=== PATIENT | male | born 1940 | race Caucasian/White ===

== ENCOUNTER 2020-09-28 09:03 | Outpatient (REF) | payer MEDICARE, SELFPAY ==
--- NOTE | 2020-10-03 08:42 | MHC.AU.P13 ---
Adult Audiological Evaluation Date of Visit: 09/28/20 Reason for Appointment: Long-standing history of hearing loss. Patient arrives to determine if there has been a change in hearing. He thinks that clarity of speech has decreased further. Previous Hearing Test Results: At this clinic on 05/25/2019- Moderate to profound sensorineural hearing loss bilaterally, slightly worse in the left ear. Word discrimination was 44% in the right ear and 24% in the left ear. Medical History: Medical History: Heart Problems, High Blood Pressure, Thyroid Disease Hearing Instrument History- Right Ear: Rod Filler: Phonak Model: Audeo V90-13 Serial Number: [id number] Battery Size: 13 Repair Warranty: 02/15/2019 Loss and Damage Warranty: 02/15/2019 Dispensed By: [facility] Date of Fittin11/26/2015 Hearing Instrument History- Left Ear: Rod Filler: BallLogicak Model: Audeo V90-13 Serial Number: [id number] Battery Size: 13 Warranty: 02/15/2019 Loss and Damage Warranty: 02/15/2019 Dispensed By: [facility] Date of Fittin11/26/2015 Otoscopy: Right Ear: Unremarkable Left Ear: Unremarkable Tympanometry: Tympanometry performed due to: Patient report of problem with sound quality/clarity Right Ear: Normal Middle Ear System (Type A) Left Ear: Normal Middle Ear System (Type A) Hearing Evaluation: Transducer(s) Used: Insert Earphones Method: Conventional Audiometry Stimuli Used: Pure Tones Right Ear: Description of Hearing: Moderate to profound sensorineural hearing loss Left Ear: Description of Hearing: Moderate to profound sensorineural hearing loss Speech Recognition Threshold (SRT): Method Used: Recorded Lists Stimuli Used: Spondee Words Right Ear: 80 dBHL Left Ear: 80 dBHL Word Discrimination: Method: Recorded Lists Word Lists Used: NU-6 Right Ear: 28% at 85 dBHL (Tested at MCL due to patient discomfort at higher levels) Left Ear: 32% at 90 dBHL (Tested at MCL due to patient discomfort at higher levels) Most Comfortable Level (MCL): Right Ear: 85 dBHL Left Ear: 90 dBHL Comparison: Compared to most recent evaluation: Slight decrease in tonal thresholds, mostly in low frequencies. Recommendations: Audiological re-evaluation in one year. Hearing aid maintenance performed today. Hearing aid(s) reprogrammed with updated test results. Patient has been experiencing frustration with his decrease in clarity/word discrimination. Discussed that due to his poor word discrimination and extent of hearing loss, he could potentially be a candidate for a cochlear implant. If he was interested, it is recommended that he consult Dr. Nicholson at [facility]. Diagnosis: Primary Diagnosis: H90.3 Bilateral Sensorineural Hearing Loss Services Performed: Comprehensive Audiological Evaluation (CPT 40850), Tympanometry (CPT 69253) Signature: Provider: Tracy Faustin, CCC-A
--- NOTE | 2020-10-03 08:47 | MHC.AU.P13 ---
Adult Audiological Evaluation Date of Visit: 09/28/20 Reason for Appointment: Long-standing history of hearing loss. Patient arrives to determine if there has been a change in hearing. He thinks that clarity of speech has decreased further. Previous Hearing Test Results: At this clinic on 05/25/2019- Moderate to profound sensorineural hearing loss bilaterally, slightly worse in the left ear. Word discrimination was 44% in the right ear and 24% in the left ear. Medical History: Medical History: Heart Problems, High Blood Pressure, Thyroid Disease Hearing Instrument History- Right Ear: Rail Layer: Phonak Model: Audeo V90-13 Serial Number: [id number] Battery Size: 13 Repair Warranty: 02/15/2019 Loss and Damage Warranty: 02/15/2019 Dispensed By: [facility] Date of Fittin11/26/2015 Hearing Instrument History- Left Ear: Rail Layer: TouristRak Model: Audeo V90-13 Serial Number: [id number] Battery Size: 13 Warranty: 02/15/2019 Loss and Damage Warranty: 02/15/2019 Dispensed By: [facility] Date of Fittin11/26/2015 Otoscopy: Right Ear: Unremarkable Left Ear: Unremarkable Tympanometry: Tympanometry performed due to: Patient report of problem with sound quality/clarity Right Ear: Normal Middle Ear System (Type A) Left Ear: Normal Middle Ear System (Type A) Hearing Evaluation: Transducer(s) Used: Insert Earphones Method: Conventional Audiometry Stimuli Used: Pure Tones Right Ear: Description of Hearing: Moderate to profound sensorineural hearing loss Left Ear: Description of Hearing: Moderate to profound sensorineural hearing loss Speech Recognition Threshold (SRT): Method Used: Recorded Lists Stimuli Used: Spondee Words Right Ear: 80 dBHL Left Ear: 80 dBHL Word Discrimination: Method: Recorded Lists Word Lists Used: NU-6 Right Ear: 28% at 85 dBHL (Tested at MCL due to patient discomfort at higher levels) Left Ear: 32% at 90 dBHL (Tested at MCL due to patient discomfort at higher levels) Most Comfortable Level (MCL): Right Ear: 85 dBHL Left Ear: 90 dBHL Comparison: Compared to most recent evaluation: Slight decrease in tonal thresholds, mostly in low frequencies. Recommendations: Audiological re-evaluation in one year. Hearing aid maintenance performed today. Hearing aid(s) reprogrammed with updated test results. Patient has been experiencing frustration with his decrease in clarity/word discrimination. Discussed that due to his poor word discrimination and extent of hearing loss, he could potentially be a candidate for a cochlear implant. If he was interested, it is recommended that he consult an Ear, Nose, and Throat physician experienced with cochlear implants. Some nearby practices include Dr. Nicholson at [facility] in [place], [place] or the Ear, N[facility], and Th[facility] practice at [facility] in [place], [place]. Diagnosis: Primary Diagnosis: H90.3 Bilateral Sensorineural Hearing Loss Services Performed: Comprehensive Audiological Evaluation (CPT 40801), Tympanometry (CPT 27519) Signature: Provider: Tracy Faustin, CCC-A
== END 2020-09-28 09:04 | disposition home or self-care (01) ==
LOC: HO.SH 09:03
PROVIDERS: Visit Provider Family Medicine
DX: H90.3 Sensorineural hearing loss, bilateral (principal)
CPT/HCPCS: 92557; 92567

== ENCOUNTER 2020-09-28 09:54 | Outpatient (REF) | payer SELFPAY | END 2020-09-28 09:55 | disposition home or self-care (01) | LOC: HO.HAP 09:54 | PROVIDERS: Visit Provider Family Medicine | DX: Z46.1 Encounter for fitting and adjustment of hearing aid (principal) | CPT/HCPCS: V5267 ==

== ENCOUNTER 2021-04-11 14:12 | Outpatient (REF) | payer SELFPAY | END 2021-04-11 14:13 | disposition home or self-care (01) | LOC: HO.HAP 14:12 | PROVIDERS: Visit Provider Family Medicine | DX: Z46.1 Encounter for fitting and adjustment of hearing aid (principal); H90.3 Sensorineural hearing loss, bilateral | CPT/HCPCS: V5267 ==

== ENCOUNTER 2021-10-28 09:32 | Outpatient (REF) | payer MEDICARE, SELFPAY ==
--- NOTE | 2021-10-28 14:31 | MHC.AU.AEV ---
Adult Audiological Evaluation Date of Visit: 10/28/21 Reason for Appointment: Long-standing history of hearing loss. Patient had chronic ear infections as a child, which were treated with radium. He believes that may have been a major contributing factor to his hearing loss. Has hearing been tested previously?: Yes Previous Hearing Test Results: At this clinic on 09/28/2020- Moderately-severe to profound sensorineural hearing loss bilaterally Ear History: Recent Ear Drainage: None Reported Recent Ear Pain: None Reported Recent Ear Infections: None Reported Ear Infections in Childhood: Both Ears Medical History: Medical History: Heart Problems, High Blood Pressure, Thyroid Disease Hearing Instrument History- Right Ear: Hand Router Operator: [employer] Model: ViXS SystemseAscendant Dx V90-13 Serial Number: [id number] Battery Size: 13 Repair Warranty: 02/15/2019 Loss and Damage Warranty: 02/15/2019 Dispensed By: [facility] Date of Fittin11/26/2015 Hearing Instrument History- Left Ear: Hand Router Operator: [employer].orgak Model: Audeo V90-13 Serial Number: [id number] Battery Size: 13 Warranty: 02/15/2019 Loss and Damage Warranty: 02/15/2019 Dispensed By: [facility] Date of Fittin11/26/2015 Otoscopy: Right Ear: Unremarkable Left Ear: Unremarkable Hearing Evaluation: Transducer(s) Used: Insert Earphones Method: Conventional Audiometry Stimuli Used: Pure Tones Right Ear: Description of Hearing: Moderately-severe to profound sensorineural hearing loss Left Ear: Description of Hearing: Moderately-severe to profound sensorineural hearing loss Speech Recognition Threshold (SRT): Method Used: Recorded Lists Stimuli Used: Spondee Words Right Ear: 65 dBHL Left Ear: 65 dBHL Word Discrimination: Method: Recorded Lists Word Lists Used:: W-22 Right Ear: 25% at 85 dBHL (could not test higher due to patient discomfort) Left Ear: 30% at 85 dBHL (could not test higher due to patient discomfort) Most Comfortable Level (MCL): Right Ear: 90 dBHL Left Ear: 90 dBHL Comparison: Compared to most recent evaluation: Slight decrease in right ear around 5935-2339 Hz Recommendations: Audiological re-evaluation in one year. See Hearing Aid Follow-Up note for more information. Diagnosis: Primary Diagnosis: H90.3 Bilateral Sensorineural Hearing Loss Signature: Provider: Tracy Faustin, CCC-A
--- NOTE | 2021-10-28 14:33 | MHC.AU.HFU ---
Hearing Instrument Follow-Up- Binaural Date of Visit: 10/28/21 Right Ear: Wing Commander: Phonak Model: Tracyeo V90-13 Serial Number: [id number] Repair Warranty: 02/15/2019 Loss and Damage Warranty: 02/15/2019 Battery Size: 13 Dispensed By: [facility] Date of Fittin11/26/2015 Left Ear: Wing Commander: Phonak Model: Tracyeo V90-13 Serial Number: [id number] Repair Warranty: 02/15/2019 Loss and Damage Warranty: 02/15/2019 Battery Size: 13 Type of Wax Guard: Dispensed By: [facility] Date of Fittin11/26/2015 Follow-Up Summary: Patient was seen for audiological re-evaluation (see separate report for details). He reports that on both cShells, the skeleton lock portion has broken and is starting to separate from the body of the cShell. They still fit and are not causing pain; however, the cracks could allow moisture to get into the electronics and cause damage. Patient also notes that the right hearing aid sounds very weak. Hearing aid maintenance performed. Exteriors were cleaned. Microphones vacuumed. Battery compartments cleaned. The left hearing aid is amplifying as expected. The right hearing aid is still very weak after cleaning. Options were discussed, which included repairing the right hearing aid and obtaining new cShells, pursuing a new pair of hearing aids, or determining candidacy for cochlear implantation, as was briefly discussed at his last audio. Patient would like to hold off on cochlear implants, as he has several other surgeries he will need within the next year or so. He would like to try any non-surgical approach to improving his hearing first. Discussed that, given his degree of hearing loss, his current hearing aids have approached the limit of their fitting range. He ideally should have ultra-powered instruments that are meant for profound hearing loss. It would preferable to pursue new, more powerful, hearing aids over the cost of repairing 6 year old hearing aids that are not meeting his amplification needs. Patient is still in the workforce. He obtained his previous hearing aids through [facility]. He asked me to reach out to his previous counselor, Marcia Mcgrath, and let her know that he is interested in new hearing aids. She will contact the patient to discuss the process going forward. In the meantime, impressions for new molds were taken bilaterally and will be held in our office until we hear from [facility]. If able to proceed, a pair of Phonak Anabel P70-UP in color P1 will be ordered, along with Microsonic Jocle-q-ravg Clear Skeleton molds. Patient will be contacted with updates as we proceed. Diagnosis Code(s): Primary Diagnosis: H90.3 Bilateral Sensorineural Hearing Loss Signature: Provider: Tracy Faustin, CCC-A
--- NOTE | 2021-10-28 14:34 | MHC.AU.MED ---
Medical Clearance for Hearing Instrumentation Date: 10/28/21 Patient Name: Abimael Pepper Date of : 1940 Referring Provider: Shay Riggs MD We have seen your patient on 10/28/21 and have determined that they are a candidate for amplification (See accompanying report). Specifically, they would benefit from: Hearing aid use in both ears There is a statute that addresses Medical Evaluation Requirements prior to fitting a patient with a hearing aid. According to [place] statute [facility] CMR:6.03(1), (a) General. Except as provided in 265 CMR 6.03(1)(b), a deaf/hard of hearing specialist shall not sell a hearing aid unless the prospective user has presented to the deaf/hard of hearing specialist a written statement signed by a licensed physician that states that the patient's hearing loss has been medically evaluated and the patient may be considered a candidate for a hearing aid. The medical evaluation must have taken place within the preceding six months. Please note: Due to the [place] Statute referenced above, we cannot accept a signature other than that of a licensed physician. CAT OPERATOR and PA signatures cannot be accepted. I am in agreement with the above recommendation. There is no medical contraindication for hearing instrumentation. Physician Signature Date Physician Name (Printed)
== END 2021-10-28 09:33 | disposition home or self-care (01) ==
LOC: HO.SH 09:32
PROVIDERS: Visit Provider Family Medicine
DX: H90.3 Sensorineural hearing loss, bilateral (principal)
CPT/HCPCS: 92557

== ENCOUNTER 2022-02-18 12:27 | Outpatient (REF) | payer SELFPAY ==
--- NOTE | 2022-02-18 14:03 | MHC.AU.HFU ---
Hearing Instrument Follow-Up- Binaural Date of Visit: 02/18/22 Right Ear: Special Warfare Combatant Crewman: Phonak Model: Anabel P 70-UP Serial Number: [id number] Repair Warranty: 03/31/2025 Loss and Damage Warranty: 03/31/2025 Battery Size: 675 Color: Sand Beige Tubing: Tube Lock Type of Mold: Microsonic Skeleton Dispensed By: [facility] Date of Fittin02/04/2022 Left Ear: Special Warfare Combatant Crewman: Phonak Model: Anabel P 70-UP Serial Number: [id number] Repair Warranty: 03/31/2025 Loss and Damage Warranty: 03/31/2025 Battery Size: Rechargeable Color: Sand Beige Tubing: Tube Lock Type of Mold: Microsonic Skeleton Dispensed By: [facility] Date of Fittin02/04/2022 Follow-Up Summary: Overall doing well with the new hearing aids. Right mold feels too big and difficult to insert and the tubing too short. Ground down the right mold and changed tubing with improved comfort while in office. Per patient request increased overall gain for both aids 3 dB. Datalogging shows 14 hours average daily wearing time. Reviewed answering the cell phone by pressing the VC button. Recommendations: Hearing instrument follow-up or maintenance as needed.Please contact our clinic with any questions or concerns. Diagnosis Code(s):Primary Diagnosis: H90.3 Bilateral Sensorineural Hearing Loss Signature:Provider: Tomas Irizarry, KAYCEE-A
== END 2022-02-18 12:28 | disposition home or self-care (01) ==
LOC: HO.HAP 12:27
PROVIDERS: Visit Provider Family Medicine
DX: Z13.89 Encounter for screening for other disorder (principal)

== ENCOUNTER 2022-06-18 15:17 | Outpatient (REF) | payer SELFPAY ==
--- NOTE | 2022-06-18 16:39 | MHC.AU.HFU ---
Hearing Instrument Follow-Up- Binaural Date of Visit: 06/18/22 Right Ear: Phonak Anabel P70-UP SN: [id number] Color: Sand Beige Repair Warranty: 03/31/2025 Loss and Damage Warranty: 03/31/2025 Battery Size: 675 Tubing: Tube Lock Type of Mold: Microsonic Skeleton Dispensed By: [facility] Date of Fittin02/04/2022 Left Ear: Phonak Anabel P70-UP SN: [id number] Color: Sand Beige Repair Warranty: 03/31/2025 Loss and Damage Warranty: 03/31/2025 Battery Size: Rechargeable Tubing: Tube Lock Type of Mold: Microsonic Skeleton Dispensed By: [facility] Date of Fittin02/04/2022 Follow-Up Summary: Abimael dropped of his right hearing aid reporting that the tubing was broken. Cleaned hearing aid and ear mold. Vacuumed microphones and replaced tubing. A listening check demonstrated the hearing aid is in good working order. The ear mold is ripping near the helix of the skeleton portion of the mold. Recommendations: Schedule an appointment for a new impression to remake the right ear mold. Hearing instrument maintenance in 6 months, or sooner if needed. Please contact our clinic with any questions or concerns. Diagnosis Code(s): Primary Diagnosis: H90.3 Bilateral Sensorineural Hearing Loss Signature: Provider: Ubaldo Valadez, [facility]
== END 2022-06-18 15:18 | disposition home or self-care (01) ==
LOC: HO.HAP 15:17
PROVIDERS: Visit Provider Family Medicine
DX: Z13.89 Encounter for screening for other disorder (principal)

== ENCOUNTER 2022-06-19 15:57 | Outpatient (REF) | payer SELFPAY | END 2022-06-19 15:58 | disposition home or self-care (01) | LOC: HO.HAP 15:57 | PROVIDERS: Visit Provider Family Medicine | DX: Z13.89 Encounter for screening for other disorder (principal) ==

== ENCOUNTER 2022-09-26 09:45 | Outpatient (REF) | payer SELFPAY | END 2022-09-26 09:46 | disposition home or self-care (01) | LOC: HO.HAP 09:45 | PROVIDERS: Visit Provider Family Medicine | DX: Z13.89 Encounter for screening for other disorder (principal) ==